=== PATIENT | male | born 1955 | race Caucasian/White ===

== ENCOUNTER 2024-12-10 20:48 | Outpatient (CLI) | payer MEDICARE, BC, SELFPAY ==
--- OUTSIDE RECORDS SUMMARY | 2024-12-11 00:47 | XMS_ITS | Clinical Summary ---
Author Organization [employer] [facility] Address [address] [place] [address] Care Team Providers Care Box Shook Patcher Name Role Phone Kadi Remy DO Primary Care Provider Allergies No known active allergies Medications ASPIRIN 81 MG TAB, DELAYED RELEASE take 1 tablet (81 mg) by oral route once daily 0 11/18/19 09 Active loratadine (CLARITIN) 10 mg tablet Take 1 tablet by mouth once daily. 0 10/29/19 11 Active [place]-3 Fatty Acids-Vitamin E 2,000-650-12 mg/2.5 gram elpk Take 1 capsule by mouth 2 times daily. 0 09/27/19 17 Active acetaminophen (TYLENOL) 325 mg tablet Take 1 tablet by mouth every 4 hours if needed. Max acetaminophen dose: 4000mg in 24 hrs. Sometimes gets headaches from citalopram. 0 04/08/20 19 Active blood-glucose meterIndications: New onset type 2 diabetes mellitus (HC) Dispense meter, test strips, lancets covered by pt ins. E11.65 NIDDM type II, uncontrolled - Test 2 times/day. Reason: High A1C 1 Device 08/03/19 Active inhalational spacing deviceIndications :Exercise-induced asthma (HC) For home use. 1 Each 2 12/31/19 21 Active albuterol HFA (PRO-AIR; VENTOLIN; PROVENTIL) 90 mcg/actuation inhalerIndication s:Exercise-induce d asthma (HC) Inhale 1-2 Puffs by mouth every 4 hours if needed. 1 Each 5 02/23/20 21 Active lancets (Accu-Chek Softclix Lancets)Indicatio ns:New onset type 2 diabetes mellitus (HC) USE TO TEST TWO TIMES A DAY 200 Each 3 08/24/19 22 Active blood sugar diagnostic (Accu-Chek La Plus test strp) stripIndications: New onset type 2 diabetes mellitus (HC) USE TO TEST ONE TIMES A DAY 100 Each 6 08/24/19 22 Active omeprazole (PRILOSEC) 40 mg Delayed-Release capsuleIndication s:Dyspepsia TAKE ONE CAPSULE BY MOUTH EVERY DAY BEFORE A MEAL 90 Capsule 1 09/02/19 24 Active metFORMIN (GLUCOPHAGE) 1,000 mg tabletIndications :New onset type 2 diabetes mellitus (HC) Take 1 Tablet (1,000 mg) by mouth two times daily with meals. 180 Tablet 3 12/08/19 24 Active oxybutynin XL (DITROPAN XL) 5 mg CR tablet Active atorvastatin (LIPITOR) 20 mg tabletIndications :New onset type 2 diabetes mellitus (HC),HTN (hypertension),Mi xed hyperlipidemia Take 1 Tablet (20 mg) by mouth at bedtime. 90 Tablet 3 04/16/20 24 Active lisinopriL 20 mg tabletIndications :Hypertension, unspecified type TAKE ONE TABLET BY MOUTH ONCE EVERY DAY 90 Tablet 1 09/15/19 25 Active metoprolol succinate 25 mg Sustained-Release tabletIndications :Frequent unifocal PVCs TAKE ONE TABLET (25 MG) BY MOUTH ONCE EVERY DAY 90 Tablet 1 09/15/19 25 Active citalopram 20 mg tabletIndications :anxiety with depression Take 1.5 Tablets (30 mg) by mouth once daily in the morning. Patient is taking 1.5 tablets 30mg total 135 Tablet 3 11/19/19 25 Active Vitamin D2 1,250 mcg (50,000 unit) capsuleIndication s:Vitamin D deficiency TAKE 1 CAPSULE BY MOUTH ONCE WEEKLY 52 Capsule 05/23/20 22 025 Discontin ued(*Med complete/ Regimen complete/ Level of care change) citalopram (CELEXA) 20 mg tabletIndications :Major depression, single episode, in complete remission TAKE ONE TABLET BY MOUTH EVERY EVENING 90 Tablet 3 03/20/20 24 025 Discontin ued(Reord er (E-cancel not sent)) Active Problems Problem Noted Date Diagnosed Date Stage 3a chronic kidney disease 10/28/2024 Primary osteoarthritis of right knee 01/12/2024 Blood donor 08/24/2021 Iron deficiency anemia due to chronic blood loss 08/24/2021 Moderate episode of recurrent major depressive d isorder 07/27/2020 New onset type 2 diabetes mellitus 04/20/2019 Dupuytren's disease of palm of right hand 2018 Colon polyp 01/11/2013 Overview (04/24/2024): Colonoscopy 01/2013 normal repeat in 5 years Colonoscopy 04/2024 normal, repeat in 5 years Elevated fasting glucose 05/16/2012 Asymptomatic varicose veins 01/26/2011 HTN (hypertension) 12/28/2009 Allergic rhinitis, cause unspecified 09/14/2006 Overview (09/14/2006): immunotherapy Resolved Problems Problem Noted Date Diagnosed Date Resolved Date CKD (chronic kidney disease) stage 3, GFR 30-59 ml/min 07/03/2021 08/24/2021 Depression, recurrent 07/27/20202020 Major depression, single epi sode, in complete remission 02/25/2011 07/27/2020 Encounters Date Type Department Care Team Description 12/10/2024 Refill [facility] [address] [place] [address] Mary Vigil PA Refill Request (Metformin) 11/18/2024 1:25 PM CDT Office Visit [facility] [address] [place] [address] Kadi Remy DO Fatigue; Medication Management (citalapram increase); Memory Loss 11/18/2024 Travel 10/28/2024 11:30 AM CDT Office Visit [facility] [address] [place] [address] Kristina Bernardo PA Fatigue (Patient has felt fatigued for a few weeks patient says some days are good somedays are just exhausting and not feeling well.) 10/28/2024 Travel 09/13/2024 Refill [facility] [address] [place] [address] Kadi Remy DO Refill Request (Lisinopril, Metoprolol Succinate) from Last 3 Months Immunizations Immunization Administration Dates Next Due AMB Influenza, IIV3 (Age >=3 years)(Flu Clinic Only) 04/11/2012,04/21/2008 AMB Influenza, IIV4 PF (=>6 mos Flulaval,Fluzone Fluarix)(Flu Clinic Only) 04/16/2015 COVID-19 VACCINE SPIKEVAX (M ODERNA 50MCG/0.5ML) 12YO+ PFS 04/15/2024,04/06/2023 COVID-19 vaccine (Moderna 100mcg/0.5mL) PF, MDV 04/06/2023 COVID-19 vaccine ([employer]-Bio NTech 30mcg/0.3mL) 12YO+ BIVALENT PF, MDV 03/10/2022 COVID-19 vaccine ([employer]-Bio NTech 30mcg/0.3mL) PF, MDV 04/20/2021,04/15/2021,09/03/2020,08/13 Influenza A (H1N1), Inactiva amelie (Age >=3 Years) 06/10/2009 Influenza Virus, Unspecified 03/02/2010,05/25/20 05 Influenza, High-dose Inactivated 02/24/2019 Influenza, High-dose Quadriv alent Inactivated 04/06/2023 Influenza, IIV3 (Age 6-35 mos) 03/16/2011 Influenza, IIV3 (Age >=3 years) 04/22/20 13,03/16/2011,03/02/2010,02/18,04/03/2007,05/17/2006,04/10/1999 ,04/06/1998,04/14/1997,03/29/1996 Influenza, IIV4 04/07/2021,03/13/2017,02/26/2016 Influenza, IIV4 (=>6mos) MDV 03/12/2018 Influenza, Inactivated AIIV4 (Age 65+ Years) Preserv Free 04/06/2023,03/21/2022,03/16/2020 Influenza, Inactivated IIV3 (Age 65+ Years) Preserv Free 04/15/2024 Pneumococcal Poly,23-Valent (Pneumovax) 04/08/2019,04/03/2007,03/29/1996 RSV, Recombinant ADJ Reconst ituted (Arexvy 120MCG/0.5mL) 04/22/2023,04/13/2023 Td (Age >=7 Years) 04/08/2019,09/26/1995 Tdap 10/31/2008 Zoster (Shingrix-RZV, recombinant) 12/25/2019, Zoster (Zostavax-ZVL, live) 04/17/2014 Family History Medical History Relation Name Comments Hypertension Mother Hypertension Sister 1 Cancer Sister 2 uterine ca Relation Name Status Comments Father (Age 82) renal cell Mother (Age 56) CVA Sister 1 Sister 2 Social History Tobacco Use Types Packs/Day Years Used Date Smoking Tobacco: Never Smokeless Tobacco: Never Tobacco Cessation:Counseling Given: Yes Alcohol Use Standard Drinks/Week Comments Yes 0 (1 standard drink = 0.6 oz pur e alcohol) 1 time per month PHQ-2 Answer Date Recorded PHQ-2 TOTAL SCORE 2 11/18/2024 Social Connections Answer Date Recorded Do you often feel lonely or isolated from those around you? 0 12/08/2023 Financial Resource Strain Answer Date R ecorded Difficulty of Paying Living Expenses 3 12/08/2023 Difficulty of Paying Living Expenses Not on file 12/08/2023 Food Insecurity Answer Date Recorded Do you worry your food will run out before you are able to buy more? 1 12/08/2023 Transportation Needs Answer Date Record ed Does lack of transportation keep you from medica l appointments? 1 12/08/2023 Does lack of transportation keep you from work, meetings or getting things that you need? 1 12/08/2023 Housing Stability Answer Date Recorded What is your housing situation today? 1 12/08/2023 Utilities Answer Date Recorded Do you have trouble paying f or utilities (for example, heat, electricity, water, phone)? 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 Not on file Not on file Obstetrics History Last Filed Vital Signs Vital Sign Reading Time Taken Comments Blood Pressure 156/74 11/18/2024 1:22 PM CDT Pulse 75 11/18/2024 1:22 PM CDT Temperature 36.9 C (98.5 F) 10/28/2024 11:29 AM CDT Respiratory Rate 20 08/03/2020 2:[address] RECORDING MONITOR Oxygen Saturation 99% 11/18/2024 1:22 PM CDT Inhaled Oxygen Concentration - - Weight 92.4 kg (203 lb 9.6 oz) 11/18/2024 1:22 P M CDT Height 185.4 cm (6' 1) 04/15/2024 2:[address] RECORDING MONITOR Body Mass Index 26.86 04/15/2024 2:[address] RECORDING MONITOR Plan of Treatment Upcoming Encounters Date Type Department Care Team (Late st Contact Info) Description 03/11/2025 9:00 AM CDT Office Visit [facility] [address] [place] [address] Luigi Pulliam MD [address] [place] [address] Health Maintenance Due Date Last Done Comments Pneumococcal series for age 50+ (2 of 2 - PCV) 04/08/2020 04/08/2019, 04/03/2007, 03/29/1996 COVID-19 vaccine series ( season) 2024 04/15/2024, 04/06/2023, 04/06/2023, Additional history exists BMI (ht and wt on same day) for age 18+ 04/15/2025 04/15/2024, 03/18/2024, 01/16/2023, Additional history exists Medicare Wellness for age 65+ 04/16/2025 04/15/2024, 01/16/2023, 08/23/2021 Depression screening for age 12+ 11/18/2025 11/18/2024, 04/15/2024, 07/13/2023, Additional history exists Tetanus booster 04/08/2029 04/08/2019, 10/11, 09/26/1995 Lipids for age 45-75 04/15/2029 04/15/2024, 12/08/2023, 08/17/2022, Additional history exists Colonoscopy through age 75 04/24/202904/24, 10/05/2018, 10/05/2018, Additional history exists Hepatitis C screening for age 18-79 05/25/2040 Postponed from 10/17/1971 (Other) ([place]) Tdap Completed 10/31/2008 Zoster (shingles) series for age 50+ Completed 12/25/2019, 10/11/2019, 04/17/2014 RSV vaccine for adults or Completed 04/22/2023, 04/13/2023 Influenza Vaccine Completed 04/15/2024, , 03/21/2022, Additional history exists Hepatitis B series for 19+ Aged Out N o longer eligible based on patient's age to complete this topic Procedures Procedure Name Priority Date/Time Associated Diagnosis Comments EKG 12 LEAD Routine 11/19/2024 10:47 AM CDT Medication monitoring encounter UT READING EKG - NO CHARGE, COMP ONLY Routine 11/19/2024 10:46 AM CDT Medication monitoring encounter HEMOGLOBIN A1C MONITORING (POCT) Routine 11/18/2024 2:23 PM CDT New onset type 2 diabetes mellitus (HC) VITAMIN D 25 (DEFICIENCY) Routine 10/28/2024 12:27 PM CDT Vitamin D deficiency TSH WITH REFLEX Routine 10/28/2024 12:27 PM CDT Fatigue, unspecified type CBC WITH AUTO DIFFERENTIAL Routine 10/28/2024 12:27 PM CDT Fatigue, unspecified type COMP METABOLIC PANEL Routine 10/28/2024 12:27 PM CDT Fatigue, unspecified type COVID/FLU/RSV PANEL Routine 10/28/2024 1 2:00 PM CDT Fatigue, unspecified type SCAN-COLONOSCOPY 04/24/2024 12:[address] RECORDING MONITOR LIPID PANEL W REFLEX MEASURED LDL Routine 04/15/2024 3:[address] RECORDING MONITOR New onset type 2 diabetes mellitus (HC) HTN (hypertension) from Last 3 Months or Most Recently Relevant to Health Maintenance Results * EKG 12 LEAD (11/19/2024 10:47 AM CDT) Kadi Remy DO EKG ORD Final Resul t * UT READING EKG - NO CHARGE, COMP ONLY (11/19/2024 10:46 AM CDT) Kadi Morelosa Detert DO PB - PROVIDER READINGS Viki l Result * (ABNORMAL) HEMOGLOBIN A1C MONITORING (POCT) (11/18/2024 2:23 PM CDT) POC HEMOGLOBIN A1C 7.1(H) <6.0 % OF TOTAL HGB [facility] Comment: Any point of care results exhibiting inconsistency with the patient's clinical status should be repeated using a different testing method. Blood BLOOD SPECIMEN / Unknown 11/18/2024 2:23 PM CDT 11/18/2024 2:23 PM CDT Kadi Remy DO CHEMISTRY Final Resul t [facility] [address] [place] [address], [facility] [address] [place] [address] * TSH WITH REFLEX (10/28/2024 12:27 PM CDT) TSH W/REFLEX TO FT4 1.27 0.40 - 4.50 mIU/L [facility] Blood BLOOD SPECIMEN / Unknown 10/28/2024 12:27 PM CDT 10/28/2024 12:30 PM CDT Narrative [facility] - 10/29/2024 6:45 AM CDT FASTING:NO FASTING: NO Kristina VALDEZ CHEMISTRY Final Result [facility] [address] [place] [address], [facility] [address] [place] [address] * VITAMIN D 25 (DEFICIENCY) (10/28/2024 12:27 PM CDT) Pathologist [facility] VITAMIN D,25-OH,TOTAL,IA 42 30 - 100 ng/mL [facility] Comment: Vitamin D Status 25-OH Vitamin D: Deficiency: <20 ng/mL Insufficiency: 20 - 29 ng/mL Optimal: > or = 30 ng/mL For 25-OH Vitamin D testing on patients on D2-supplementation and patients for whom quantitation of D2 and D3 fractions is required, the QuestAssure[facility](TM) 25-OH VIT D, (D2,D3), LC/MS/MS is recommended: order code 64066 (patients >2yrs). See Note 1 Note 1 For additional information, please refer to http://education.Skeeble/faq/YWU310 (This link is being provided for informational/ educational purposes only.) Blood BLOOD SPECIMEN / Unknown 10/28/2024 12:27 PM CDT 10/28/2024 12:30 PM CDT Narrative [facility] - 10/29/2024 6:45 AM CDT FASTING:NO FASTING: NO Kristina VALDEZ SEND OUTS Final Result Performing Organization Address [facility] Co de Phone Number [employer] [facility] [address] [place] [address], [facility] [address] [place] [address] * CBC AND DIFFERENTIAL (10/28/2024 12:27 PM CDT) Pathologist [facility] WHITE BLOOD CELL COUNT 5.7 3.8 - 10.8 Thousand/u L [facility] RED BLOOD CELL COUNT 4.79 4.20 - 5.80 Million/uL [facility] HEMOGLOBIN 14.8 13.2 - 17.1 g/dL [facility] HEMATOCRIT 44.3 38.5 - 50.0 % [facility] MCV 92.5 80.0 - 100.0 fL [facility] MCH 30.9 27.0 - 33.0 pg [facility] MCHC 33.4 32.0 - 36.0 g/dL [facility] Comment: For adults, a slight decrease in the calculated MCHC value (in the range of 30 to 32 g/dL) is most likely not clinically significant; however, it should be interpreted with caution in correlation with other red cell parameters and the patient's clinical condition. RDW 11.9 11.0 - 15.0 % [facility] PLATELET COUNT 268 140 - 400 Thousand/u L [facility] MPV 10.3 7.5 - 12.5 fL [facility] ABSOLUTE NEUTROPHILS 3,625 1,500 - 7,800 cells/uL [facility] ABSOLUTE LYMPHOCYTES 1,522 850 - 3,900 cells/uL [facility] ABSOLUTE MONOCYTES 274 200 - 950 cells/uL [facility] ABSOLUTE EOSINOPHILS 251 15 - 500 cells/uL [facility] ABSOLUTE BASOPHILS 29 0 - 200 cells/uL [facility] NEUTROPHILS 63.6 % [facility] LYMPHOCYTES 26.7 % [facility] MONOCYTES 4.8 % [facility] EOSINOPHILS 4.4 % [facility] BASOPHILS 0.5 % [facility] Blood BLOOD SPECIMEN / Unknown 10/28/2024 12:27 PM CDT 10/28/2024 12:30 PM CDT Narrative [facility] - 10/29/2024 4:16 AM CDT FASTING:NO FASTING: NO Kristina VALDEZ HEMATOLOGY Final Result [employer] [facility] [address] [place] [address], [facility] [address] [place] [address] * (ABNORMAL) COMP METABOLIC PANEL (10/28/2024 12:27 PM CDT) [facility] GLUCOSE 167(H) 65 - 139 mg/dL [facility] Comment: Non-fasting reference interval UREA NITROGEN (BUN) 27(H) 7 - 25 mg/dL [facility] CREATININE 1.49(H) 0.70 - 1.28 mg/dL [facility] EGFR 50(L) > OR = 60 mL/min/1.7 3m2 [facility] BUN/CREATININE RATIO 18 6 - 22 (calc) [facility] SODIUM 138 135 - 146 mmol/L [facility] POTASSIUM 5.0 3.5 - 5.3 mmol/L [facility] CHLORIDE 102 98 - 110 mmol/L [facility] CARBON DIOXIDE 24 20 - 32 mmol/L [facility] CALCIUM 9.9 8.6 - 10.3 mg/dL [facility] PROTEIN, TOTAL 7.3 6.1 - 8.1 g/dL [facility] ALBUMIN 4.6 3.6 - 5.1 g/dL [facility] GLOBULIN 2.7 1.9 - 3.7 g/dL (calc) [facility] ALBUMIN/GLOBULIN RATIO 1.7 1.0 - 2.5 (calc) [facility] BILIRUBIN, TOTAL 0.4 0.2 - 1.2 mg/dL [facility] ALKALINE PHOSPHATASE 65 35 - 144 U/L [facility] AST 11 10 - 35 U/L [facility] ALT 17 9 - 46 U/L [facility] Blood BLOOD SPECIMEN / Unknown 10/28/2024 12:27 PM CDT 10/28/2024 12:30 PM CDT Narrative [facility] - 10/29/2024 9:20 AM CDT FASTING:NO FASTING: NO Kristina VALDEZ CHEMISTRY Final Result [facility] [address] [place] [address], [facility] [address] [place] [address] * COVID/FLU/RSV PANEL (10/28/2024 12:00 PM CDT) [facility] COVID 19 [place] MOLECULAR Negative Negative 10/29/2024 4:21 AM CDT [facility] INFLUENZA A PCR Negative 4:21 AM CDT [facility] INFLUENZA B PCR Negative 4:21 AM CDT [facility] Respiratory Syncytial Virus Negative 10/29/2024 4:21 AM CDT [facility] Swab NASOPHARYNGEAL SWAB / Unknown Non-Blood / Unknown 10/28/2024 12:00 PM CDT 10/28/2024 12:22 PM CDT Kristina VALDEZ MICROBIOLOGY Final Result [facility] [address] [place] [address], * SCAN-COLONOSCOPY (04/24/2024 12:[address] RECORDING MONITOR) Scanner OTHER Final Result * (ABNORMAL) LIPID PANEL W REFLEX MEASURED LDL (04/15/2024 3:[address] RECORDING MONITOR) Pathologist [facility] CHOLESTEROL, TOTAL 157 <200 mg/dL [facility] HDL CHOLESTEROL 36(L) > OR = 40 mg/dL [facility] TRIGLYCERIDES 359(H) <150 mg/dL [facility] Comment: If a non-fasting specimen was collected, consider repeat triglyceride testing on a fasting specimen if clinically indicated. Maricruz et al. J. of Clin. Lipidol. 2015;9:129-169. LDL-CHOLESTEROL 78 mg/dL (calc) [facility] Comment: Reference range: <100 Desirable range <100 mg/dL for primary prevention; <70 mg/dL for patients with CHD or diabetic patients with > or = 2 CHD risk factors. LDL-C is now calculated using the Momo calculation, which is a validated novel method providing better accuracy than the Friedewald equation in the estimation of LDL-C. Johnathan SS et al. JARRELL. 2013;310(19): 0343-1484 (http://education.Skeeble/faq/GJF405) CHOL/HDLC RATIO 4.4 <5.0 (calc) [facility] NON HDL CHOLESTEROL 121 <130 mg/dL (calc) [facility] Comment: For patients with diabetes plus 1 major ASCVD risk factor, treating to a non-HDL-C goal of <100 mg/dL (LDL-C of <70 mg/dL) is considered a therapeutic option. Blood BLOOD SPECIMEN / Unknown 04/15/2024 3:[address] RECORDING MONITOR 04/15/2024 3:[address] RECORDING MONITOR Kadi Remy DO CHEMISTRY Final Resul t [employer] [facility] [address] [place] [address], [facility] [address] [place] [phone] from Last 3 Months or Most Recently Relevant to Health Maintenance Insurance [employer] [place] [employer] [place] BL[employer] MR PB ONLY TRAVELERS Care Teams Box Shook Patcher Relationship Specialty Start Date End Date Kadi Remy DO PCP - General 03/02/10
--- OUTSIDE RECORDS SUMMARY | 2024-12-11 00:47 | XMS_ITS | Data Portability ---
Author Organization [place] [facility] [place] [facility], [facility] Address [address] [place] [address] Assessment No assessment recorded. Plan of Treatment Reminders Order Date Submit Date Provider Last Modified By Organization Details Last Modified Time Details Appointments None record ed. Lab urinal ysis, dipsti ck 2023 edel ramirez [facility], [address] [place], [address], 14:11:51 Referral None record ed. Procedures None record ed. Surgeries None record ed. Imaging None record ed. Medication Orders Gemtes a 75 mg tablet 2023 edel ramirez [id number], [address] [place] [address], [address], 14:35:06 Patient TargetsNo targets recorded. Patient InstructionsNo instructions recorded. Reason for Referral None Reported. Results Created Date Observation Date Name Description Value Unit Range Abnormal Flag Note LastModifiedBy Organization Detail LastModifiedTime 01/08/20 24 01/08/2024 urina lysis , dipst ick BLOOD Negati ve Not Available [facility] [address], [place], [address], 01/08/2024 14:09:37 01/08/20 24 01/08/2024 urina lysis , dipst ick BILIRUBIN Negati ve Not Available [facility] [address], [place], [address], 01/08/2024 14:09:37 01/08/20 24 01/08/2024 urina lysis , dipst ick UROBILINOGEN 0.2 mg/dL (Norm) Not Available [facility] [address], [place], [address], 01/08/2024 14:09:37 01/08/20 24 01/08/2024 urina lysis , dipst ick KETONES Negati ve Not Available [facility] [address], [place], [address], 01/08/2024 14:09:37 01/08/20 24 01/08/2024 urina lysis , dipst ick PROTEIN Negati ve Not Available [facility] [address], [place], [address], 01/08/2024 14:09:37 01/08/20 24 01/08/2024 urina lysis , dipst ick NITRITES Negati ve Not Available [facility] [address], [place], [address], 01/08/2024 14:09:37 01/08/20 24 01/08/2024 urina lysis , dipst ick GLUCOSE Negati ve Not Available [facility] [address], [place], [address], 01/08/2024 14:09:37 01/08/20 24 01/08/2024 urina lysis , dipst ick p.H. 5.0 Not Available [facility] [address], [place], [address], 01/08/2024 14:09:37 01/08/20 24 01/08/2024 urina lysis , dipst ick S.G. (Specific Uriah) 1.025 Not Available [facility] [address], [place], [address], 01/08/2024 14:09:37 01/08/20 24 01/08/2024 urina lysis , dipst ick LEUKOCYTES Negati ve Not Available [facility] [address], [place], [address], 01/08/2024 14:09:37 Result Notes None recorded. Medical Equipment None Reported. Allergies No known drug allergies Medications Name Sig Start Date Stop Date Status Note LastModified by Organization Details LastModified Time metformin 500 mg tablet active Not Available Not Available Not Available atorvastatin 20 mg tablet active Not Available Not Available Not Available tolterodine ER 4 mg capsule,exte nded release 24 hr Take 1 capsule every day by oral route. 2023 active Not Available Not Available Not Avai lable lisinopril 20 mg tablet active Not Available Not Available Not Available prednisone 20 mg tablet 01/07 completed Not Available Not Available Not Available Accu-Chek Softclix Lancets 01/07 completed Not Available Not Available Not Available omeprazole 40 mg capsule,mackenzie yed release 01/07 completed Not Available Not Available Not Available citalopram 20 mg tablet active Not Available Not Available Not Available DOK 100 mg capsule active Not Available Not Available Not Available benzonatate 100 mg capsule 01/07 completed Not Available Not Available Not Available metformin 1,000 mg tablet 01/07 completed Not Available Not Available Not Available oxybutynin chloride ER 5 mg tablet,exten ded release 24 hr Take 1 tablet every day by oral route. 2024 active Not Available Not Available Not Avai lable aspirin 81 mg chewable tablet Chew 1 tablet every day by oral route. active Not Available Not Available No t Available metoprolol succinate ER 25 mg tablet,exten ded release 24 hr active Not Available Not Available Not Available methylpredni solone 4 mg tablets in a dose pack 01/07 completed Not Available Not Available Not Available Vitamin D2 1,250 mcg (50,000 unit) capsule active Not Available Not Available Not Available Ventolin HFA 90 mcg/actuatio n aerosol inhaler 01/07 completed Not Available Not Available Not Available Accu-Chek La Plus test strips 01/07 completed Not Available Not Available Not Available Accu-Chek La Plus Meter 01/07 completed Not Available Not Available Not Available Gemtesa 75 mg tablet Take 1 tablet every day by oral route. 2023 active Not Available Not Available Not Avai lable loratadine 10 mg chewable tablet Take by oral route. active Not Available Not Available No t Available Vitals Date Recorded Body height Body mass index (BMI) Body weight Provider Name and Address Organization Details Last Updated DateTime 01/08/2024 185.42 cm 26.4 kg/m2 88057.47 [facility] 01/08/2024 14:16:57 Social History Question Answer Notes LastModified by Organizat ion Details LastModified Time Tobacco Smoking Status Never Smoker Jonathan weinstein [facility] 01/08/2024 14:19:34 What Is Your Level Of Caffeine Consumption? Moderate Information not available 01/08/2024 What Was The Date Of Your Most Recent Tobacco Screening? 01/08/2024 Information not available 01/08/2024 Sex: Unknown Functional Status Question Answer Note LastModified by Organizat ion Details LastModified Time Do you use any illicit or recreational drugs? No Information not available 01/08/2024 What is your level of alcohol consumption? Occasional Information not available 01/08/2024 Mental Status None recorded. Family History Relationship Description Onset Age of this Age Resolved Age Notes LastModified by Organization Details LastModified Time Father Malignant tumor of kidney [place] [facility] Not available 01/08/2024 14:19:00 Sister Malignant neoplasm of uterus [facility] [facility] Not available 01/08/2024 14:19:21 Medical History Condition Response Bleeding Disorder N Kidney Stones Y Immunizations Vaccine Type Date Status Note Provider Nam e and Address Organization Details Recorded Time Influenza, split virus, quadrivalent, preservative 8 completed Jonathan weinstein [facility] 01/08/2024 14:07:19 zoster recombinant 0 completed Miletzi [facility] ro null, [facility] 01/08/2024 14:07:20 [facility], [facility] 01/08/2024 14:07:20 Influenza, high-dose, quadrivalent, PF 3 [facility] [facility], [facility] 01/08/2024 14:07:20 Influenza, adjuvanted, quadrivalent, PF 0 [facility] [facility] null, [facility] 01/08/2024 14:07:20 Influenza, adjuvanted, quadrivalent, PF [facility] [facility], [facility] 01/08/2024 14:07:20 COVID-19, mRNA, LNP-S, PF, 30 mcg/0.3 mL dose 1 completed [facility] ro null, [facility] 01/08/2024 14:07:20 COVID-19, mRNA, LNP-S, PF, 30 mcg/0.3 mL dose 1 [facility] [facility], [facility] 01/08/2024 14:07:20 COVID-19, mRNA, LNP-S, PF, 30 mcg/0.3 mL dose 1 completed [facility] ro null, [facility] 01/08/2024 14:07:20 COVID-19, mRNA, LNP-S, PF, 30 mcg/0.3 mL dose 1 [facility] [facility] null, [facility] 01/08/2024 14:07:20 COVID-19, mRNA, LNP-S, bivalent, PF, 30 mcg/0.3 mL dose 2 [facility] [facility] null, [facility] 01/08/2024 14:07:20 RSV, recombinant, protein subunit RSVpreF, adjuvant reconstituted, 0.5 mL, PF 3 completed Miletzi [facility] [facility] null, [facility] 01/08/2024 14:07:20 RSV, recombinant, protein subunit RSVpreF, adjuvant reconstituted, 0.5 mL, PF 3 completed Mile[facility], [facility] 01/08/[facility]24 14:07:20 COVID-19, mRNA, LNP-S, PF, 50 mcg/0.5 mL 3 completed Miletzi [facility] ro null, [facility] 01/08/2024 14:07:20 pneumococcal polysaccharide PPV23 7 completed Miletzi [facility] [facility] null, [facility] 01/08/2024 14:07:20 pneumococcal polysaccharide PPV23 9 completed [facility] [facility] null, [facility] 01/08/2024 14:07:20 Tdap 9 completed [facility] ro null, [facility] 01/08/2024 14:07:20 Novel Elfarlaxb-[id number], all formulations 9 completed [facility] null, [facility] 01/08/2024 14:07:20 zoster live 4 completed [facility] null, [facility] 01/08/2024 14:07:20 Influenza, high-dose, trivalent, PF 9 completed [facility] null, [facility] 01/08/2024 14:07:20 Influenza, split virus, trivalent, preservative 9 completed Miletzi [facility] null, [facility] 01/08/2024 14:07:20 Influenza, split virus, trivalent, preservative 7 completed Miletzi [facility] null, [facility] 01/08/2024 14:07:20 Influenza, split virus, trivalent, preservative 2 completed Miletzi [facility] ro null, [facility] 01/08/2024 14:07:20 Influenza, split virus, trivalent, preservative 8 completed Miletzi [facility] [facility] null, [facility] 01/08/2024 14:07:20 Influenza, split virus, trivalent, preservative 3 completed Miletzi [facility] ro null, [facility] 01/08/2024 14:07:20 Influenza, split virus, trivalent, preservative 6 completed Milet[facility] [facility] null, [facility] 01/08/2024 14:07:20 Influenza, split virus, trivalent, preservative 5 completed Milet[facility] [facility] null, [facility] 01/08/2024 14:07:20 Influenza, split virus, trivalent, PF 0 completed Miletzi [facility] ro null, [facility] 01/08/2024 14:07:20 Influenza, split virus, trivalent, PF 1 completed Miletzi [facility] ro null, [facility] 01/08/2024 14:07:20 Td (adult), 2 Lf tetanus toxoid, preservative free, adsorbed 9 completed Miletzi [facility] [facility] null, [facility] 01/08/2024 14:07:20 Influenza, split virus, quadrivalent, PF 6 completed Miletzi [facility] ro null, [facility] 01/08/2024 14:07:20 Influenza, split virus, quadrivalent, PF 7 completed Miletzi [facility] [facility] null, [facility] 01/08/2024 14:07:20 Influenza, split virus, quadrivalent, PF 1 completed Miletzi [facility] [facility] null, [facility] 01/08/2024 14:07:20 Influenza, split virus, quadrivalent, PF 5 completed Jonathan weinstein [place] [facility] 01/08/2024 14:07:20 Past Encounters Encounter ID Performer Location Encounter Start Date Encounter Closed Date Diagnosis/Indication Diagnosis SNOMED-CT Code Diagnosis ICD10 Code Diagnosis Note [id number] Suleman Voss MD [facility] [address] [place] [address] 01/08/2024 13:59:35 01/09/2024 12:18:36 Urgent desire to urinate [id number] R39.15 1. Urinary urgency- bladder empties well (PVR = 7 mL)- likely due to an overactive bladder- try Gemtesa 75 mg daily(if no improvemen t - consider Tolterodin e ER 4 mg daily)- Follow-up in 3 months with Bladder scan Health Concerns Section Related Observation LastModified by Organization Detai ls LastModified Time None Recorded Concern Status LastModified by Organization Details LastModified Time None Recorded Advance Directives Directive None Recorded Payers Insurance Date Sequence Insurance Name Policy Number Policy Tomas Covered Member ID Tomas Member ID Guarantor Name 01/08/2024 1 [place] [employer] Mickey Pederson [place] [id number] Mickey Pederson [place] 01/15/2024 2 [place] [id number] Mickey Pederson [place] [id number] Mickey Pederson [place] 01/08/2024 1 MEDICA (PPO) [id number] Mickey Pederson [place] [id number] Mickey Pederson [place] Notes Date Note Type Note Provider Name and Address Organization Details Recorded Time 01/08/2024 text/html 68 yo male with history of HTN, DM (type 2), Dupuytren's disease (Right palm), and depression - presents for evaluation of urgency / urinary incontinence. No Family Hx of prostate cancer. He reports trouble with nocturia and urgency for several years. He voids every 1-3 hours during the day and 2x/night. He has urgency (with occasional leakage) - denies hesitancy, weak stream, and dysuria.- UA - no blood - no LE- PVR = 7 mL PSA - 0.83 (12/23/16)- 082 (05/10/13)- 0.97 (03/02/18)- 1.19 (05/25/20) Suleman Voss MD [address] [place] [address], [place], [address], [facility] 01/08/2024 23:34:25
== END 2024-12-10 20:49 | disposition home or self-care (01) ==
LOC: SLEEP 20:48
PROVIDERS: PCP Family Medicine; Visit Provider Family Medicine
DX: G47.33 Obstructive sleep apnea (adult) (pediatric) (principal)
CPT/HCPCS: 95810

== ENCOUNTER 2025-01-17 22:15 | Emergency (ER) | payer MEDICARE, BC, SELFPAY ==
[2025-01-17] VITALS (18 sets, daily range): BP systolic 136–169; BP diastolic 48–97; PULSE 30–37; RESP 0–39; TEMP 36.1; O2SAT 94–97; BMI 26.4
--- OUTSIDE RECORDS SUMMARY | 2025-01-17 22:17 | XMS_ITS | Clinical Summary ---
Author Organization [facility] Address [address] [place] [address] Care Team Providers Care Bill Poster Installer Name Role Phone Kadi Remy DO Primary Care Provider Allergies No known active allergies Medications ASPIRIN 81 MG TAB, DELAYED RELEASE take 1 tablet (81 mg) by oral route once daily 0 11/18/19 09 Active loratadine (CLARITIN) 10 mg tablet Take 1 tablet by mouth once daily. 0 10/29/19 11 Active Worthing-3 Fatty Acids-Vitamin E 2,000-650-12 mg/2.5 gram elpk [...] needed. 1 Each 5 02/23/20 21 Active Additional Information Patient not taking.Reported on 01/16/2025 lancets (Accu-Chek Softclix Lancets)Indicatio ns:New onset type [...] MEAL 90 Capsule 1 09/02/19 24 Active Additional Information Patient not taking.Reported on 01/16/2025 oxybutynin XL (DITROPAN XL) 5 mg CR [...] total 135 Tablet 3 11/19/19 25 Active metFORMIN 1,000 mg tabletIndications :New onset type 2 diabetes mellitus (HC) TAKE ONE TABLET (1,000 MG) BY MOUTH TWICE DAILY WITH MEALS 180 Tablet 12/12/19 25 Active metoprolol succinate (TOPROL XL) 25 mg Sustained-Release tabletIndications :Frequent unifocal PVCs Take 1 Tablet (25 mg) by mouth once daily. 90 Tablet 12/23/19 25 Active metoprolol succinate 25 mg Sustained-Release tabletIndications :Frequent unifocal PVCs TAKE ONE TABLET (25 MG) BY MOUTH ONCE EVERY DAY 90 Tablet 1 09/15/19 25 025 Discontin ued(*Avai lability/ Formulary change/Co st of medicatio n) Active Problems Problem Noted Date Diagnosed Date [...] Encounters Date Type Department Care Team Description 01/16/2025 1:30 PM CDT Ancillary Procedure [address] [address] Arrived 01/16/2025 10:40 AM CDT Office Visit [address] [address] Kristina Bernardo PA Dizziness 01/16/2025 Orders Only [address] [address] Kristina Bernardo PA 1 scan: (1-Ord) NFLD-EKG-01/16/25 01/16/2025 Travel 12/19/[address] [address] Kadi Remy DO Refill Request (Metoprolol Succinate) 12/10/2024 9:35 PM CDT Procedure Only [address] [address] Luigi Pulliam MD 12/10/2024 [facility] [address] [facility] [place] [address] Kadi Remy DO Refill Request (Metformin) 11/18/2024 1:25 PM CDT [facility] [address] [place] [address] Kadi Reym DO Fatigue; Medication Management (citalapram increase); Memory Loss 11/18/2024 Travel 10/28/2024 11:30 AM CDT [facility] [address] [facility] [place] [address] Kristina Bernardo PA Fatigue (Patient has felt fatigued for a few weeks patient says some days are good somedays are just exhausting and not feeling well.) 10/28/2024 Travel from Last 3 Months Immunizations Immunization Administration Dates Next Due AMB Influenza, IIV3 (Age >=3 years)(Flu Clinic Only) 04/11/2012,04/21/2008 AMB Influenza, IIV4 PF (=>6 mos Flulaval,Fluzone Fluarix)(Flu Clinic Only) 04/16/2015 COVID-19 VACCINE SPIKEVAX (M ODERNA 50MCG/0.5ML) 12YO+ PFS 04/15/2024,04/06/2023 COVID-19 vaccine (Moderna 100mcg/0.5mL) PF, MDV 04/06/2023 COVID-19 vaccine (Pfizer-Bio NTech 30mcg/0.3mL) 12YO+ BIVALENT PF, MDV 03/10/2022 COVID-19 vaccine (Pfizer-Bio NTech 30mcg/0.3mL) PF, MDV 04/20/2021,04/15/2021,09/03/2020,08/13 Influenza A (H1N1), Annia kinsey (Age >=3 Years) 06/10/2009 Influenza Virus, Unspecified [...] or isolated from those around you? 0 01/16/2025 Financial Resource Strain Answer Date R ecorded Difficulty of Paying Living Expenses 3 01/16/2025 Difficulty of Paying Living Expenses Not on file 01/16/2025 Food Insecurity Answer Date Recorded Do you worry your food will run out before you are able to buy more? 1 01/16/2025 Transportation Needs Answer Date Record ed Does lack of transportation keep you from medica l appointments? 1 01/16/2025 Does lack of transportation keep you from work, meetings or getting things that you need? 1 01/16/2025 Housing Stability Answer Date Recorded What is your housing situation today? 1 01/16/2025 Utilities Answer Date Recorded Do you have trouble paying f or utilities (for example, heat, electricity, water, phone)? 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 Not on file Not on file Obstetrics History Last Filed Vital Signs Vital Sign Reading Time Taken Comments Blood Pressure 127/72 01/16/2025 12:37 PM CDT Pulse 78 01/16/2025 12:37 PM CDT Temperature 36.9 C (98.5 F) 10/28/2024 11:29 AM CDT Respiratory Rate 20 08/03/2020 2:57 PM GLOBAL CLIMATE CHANGE RESEARCHER Oxygen Saturation 98% 01/16/2025 12:37 PM CDT Inhaled Oxygen Concentration - - Weight 90.4 kg (199 lb 3.2 oz) 01/16/2025 10:51 AM CDT Height 185.4 cm (6' 1) 04/15/2024 2:24 PM GLOBAL CLIMATE CHANGE RESEARCHER Body Mass Index 26.28 04/15/2024 2:24 PM GLOBAL CLIMATE CHANGE RESEARCHER Plan of Treatment Upcoming Encounters Date Type Department Care Team (Late st Contact Info) Description 01/22/2025 11:30 AM CDT [facility] [address] [place] [address] Kadi Remy DO [address] [place] [address] 03/11/2025 9:00 AM CDT [facility] [address] [place] [address] Luigi Pulliam MD [address] [place] [address] Health Maintenance Due Date Last Done Comments Pneumococcal series for age 50+ (2 of 2 - PCV) 04/08/2020 04/08/2019, 04/03/2007, 03/29/1996 COVID-19 vaccine series ( season) 2024 04/15/2024, 04/06/2023, 04/06/2023, Additional history exists Influenza Vaccine (#1) 2025 , 04/06/2023, 03/21/2022, Additional history exists BMI (ht and wt [...] age 18-79 05/25/2040 Postponed from 10/17/1971 (Other) Zoster (shingles) series for age 50+ Completed 12/25/2019, 10/11/2019, 04/17/2014 RSV vaccine for adults or Completed 04/22/2023, 04/13/2023 Hepatitis B series for 19+ Aged Out N o longer eligible based on patient's age to complete this topic Procedures Procedure Name Priority Date/Time Associated Diagnosis Comments EKG 12 LEAD Routine 01/16/2025 2:39 PM CDT COLON (dyspnea on exertion) Lightheadedness IA READING EKG - NO CHARGE, COMP ONLY Routine 01/16/2025 2:37 PM CDT COLON (dyspnea on exertion) Lightheadedness CT CHEST PE STUDY STAT 01/16/2025 12: 18 PM CDT COLON (dyspnea on exertion) Lightheadedness CREATININE,ISTAT Routine 01/16/2025 11:3 9 AM CDT Observation or evaluation for suspected condition CBC WITH AUTO DIFFERENTIAL Routine 01/16/2025 11:38 AM CDT COLON (dyspnea on exertion) Lightheadedness COMP METABOLIC PANEL Routine 01/16/2025 11:38 AM CDT COLON (dyspnea on exertion) Lightheadedness PRO-BNP Routine 01/16/2025 11:38 AM CDT COLON (dyspnea on exertion) Lightheadedness EKG 12 LEAD Routine 11/19/2024 10:47 AM CDT Medication monitoring encounter IA READING EKG - NO CHARGE, COMP ONLY [...] unspecified type SCAN-COLONOSCOPY 04/24/2024 12:0 0 AM GLOBAL CLIMATE CHANGE RESEARCHER LIPID PANEL W REFLEX MEASURED LDL Routine 04/15/2024 3:34 PM GLOBAL CLIMATE CHANGE RESEARCHER New onset type 2 diabetes mellitus (HC) HTN (hypertension) from Last 3 Months or Most Recently Relevant to Health Maintenance Results * EKG 12 LEAD (01/16/2025 2:39 PM CDT) Only the most recent of2 resultswithin the time period is included. us Kristina VALDEZ EKG ORD Final Result * IA READING EKG - NO CHARGE, COMP ONLY (01/16/2025 2:37 PM CDT) Only the most recent of2 resultswithin the time period is included. us Kristina VALDEZ PB - PROVIDER READINGS Final Result * CT CHEST PE STUDY (01/16/2025 12:18 PM CDT) Anatomical Region Laterality Modality CHEST, THORAX, HEART Computed To mography 01/16/2025 12:3 3 PM CDT Impressions 01/16/2025 12:33 PM CDT Unremarkable chest CTA. No evidence of pulmonary embolus. Please note that all CT scans at this facility use dose modulation, iterative reconstruction, and/or weight-based dosing when appropriate to reduce radiation dose to as low as reasonably achievable. Dictated by Antony Baez MD @ 01/16/2025 12:33:46 PM (Electronically Signed) Narrative 01/16/2025 12:33 PM CDT For Patients: As a result of the Century Cures Act, medical imaging exams and procedure reports are released immediately into your electronic medical record. You may view this report before your referring provider. If you have questions, please contact your health care provider. INDICATION: Lightheadedness and dyspnea on exertion TECHNIQUE: CT chest PE was acquired with 100 cc Omnipaque 350 IV contrast. Axial, coronal and sagittal maximum intensity projection reformatted images were performed on the scanner. COMPARISON: None. FINDINGS: Heart and vasculature: Contrast opacification of the pulmonary arterial tree is adequate. No sign of pulmonary embolism. Heart size is normal. Thoracic aorta and pulmonary artery are normal in caliber. Mild atherosclerotic calcification. Lungs and pleura: No pleural effusion or pneumothorax. No consolidation or suspicious pulmonary nodule. Mild biapical pleural-parenchymal scarring. Lymph nodes/mediastinum: No mediastinal or hilar lymphadenopathy. Chest wall: No masses. Upper abdomen: Normal. Bones: Unremarkable for age. Procedure Note Antony Baez MD - 01/16/2025 For Patients: As a result of the Cures Act, medical imagingexams and procedure reports are released immediately into your electronicmedical record. You may view this report before your referring provider.If you have questions, please contact your health care provider. INDICATION: Lightheadedness and dyspnea on exertion TECHNIQUE: CT chest PE was acquired with 100 cc Omnipaque 350 IV contrast. Axial,coronal and sagittal maximum intensity projection reformatted images wereperformed on the scanner. COMPARISON: None. FINDINGS: Heart and vasculature: Contrast opacification of the pulmonary arterialtree is adequate. No sign of pulmonary embolism. Heart size is normal.Thoracic aorta and pulmonary artery are normal in caliber. Mildatherosclerotic calcification. Lungs and pleura: No pleural effusion or pneumothorax. No consolidation orsuspicious pulmonary nodule. Mild biapical pleural-parenchymal scarring. Lymph nodes/mediastinum: No mediastinal or hilar lymphadenopathy. Chest wall: No masses. Upper abdomen: Normal. Bones: Unremarkable for age. IMPRESSION: Unremarkable chest CTA. No evidence of pulmonary embolus. Please note that all CT scans at this facility use dose modulation,iterative reconstruction, and/or weight-based dosing when appropriate toreduce radiation dose to as low as reasonably achievable. Dictated by Antony Baez MD @ 01/16/2025 12:33:46 PM (Electronically Signed) Kristina VALDEZ CT Final Result * (ABNORMAL) POCT Creatinine (01/16/2025 11:39 AM CDT) POCT,CREATININ E, ISTAT 1.5(H) 0.6 - 1.3 mg/dL [facility] Blood BLOOD SPECIMEN / Unknown 01/16/2025 11:39 AM CDT 01/16/2025 11:39 AM CDT Kristina VALDEZ CHEMISTRY Final Result [facility] [address] [place] [address], [facility] [address] [place] [address] * CBC AND DIFFERENTIAL (01/16/2025 11:38 AM CDT) Only the most recent of2 resultswithin the time period is included. Pathologist [facility] WHITE BLOOD CELL COUNT 7.4 3.8 - 10.8 Thousand/u L [facility] RED BLOOD CELL COUNT 4.78 4.20 - 5.80 Million/uL [facility] HEMOGLOBIN 15.1 13.2 - 17.1 g/dL [facility] HEMATOCRIT 46.9 38.5 - 50.0 % [facility] MCV 98.1 80.0 - 100.0 fL [facility] MCH 31.6 27.0 - 33.0 pg [facility] MCHC 32.2 32.0 - 36.0 g/dL [facility] Comment: For adults, a slight decrease in the calculated MCHC value (in the range of 30 to 32 g/dL) is most likely not clinically significant; however, it should be interpreted with caution in correlation with other red cell parameters and the patient's clinical condition. RDW 12.3 11.0 - 15.0 % [facility] PLATELET COUNT 288 140 - 400 Thousand/u L [facility] MPV 10.3 7.5 - 12.5 fL [facility] ABSOLUTE NEUTROPHILS 4,603 1,500 - 7,800 cells/uL [facility] ABSOLUTE LYMPHOCYTES 2,020 850 - 3,900 cells/uL [facility] ABSOLUTE MONOCYTES 466 200 - 950 cells/uL [facility] ABSOLUTE EOSINOPHILS 274 15 - 500 cells/uL [facility] ABSOLUTE BASOPHILS 37 0 - 200 cells/uL [facility] NEUTROPHILS 62.2 % [facility] LYMPHOCYTES 27.3 % [facility] MONOCYTES 6.3 % [facility] EOSINOPHILS 3.7 % [facility] BASOPHILS 0.5 % [facility] Blood BLOOD SPECIMEN / Unknown 01/16/2025 11:38 AM CDT 01/16/2025 11:38 AM CDT us Kristina VALDEZ HEMATOLOGY Final Result Performing Organization Address City/[facility]/ZIP Co de Phone Number [employer] [facility] [address] [place] [phone], [place] [phone] [facility] [address] [place] [address] * (ABNORMAL) PRO-BNP (01/16/2025 11:38 AM CDT) NT PROBNP 146(H) <125 pg/mL [facility] Blood BLOOD SPECIMEN / Unknown 01/16/2025 11:38 AM CDT 01/16/2025 11:38 AM CDT us Kristina VALDEZ SEND OUTS Final Result Performing Organization Address [facility] Co de Phone Number [employer] [address] [address], [place] [phone] [facility] [address] [place] [address] * (ABNORMAL) COMP METABOLIC PANEL (01/16/2025 11:38 AM CDT) Only the most recent of2 resultswithin the time period is included. GLUCOSE 72 65 - 99 mg/dL [facility] Comment: Fasting reference interval UREA NITROGEN (BUN) 28(H) 7 - 25 mg/dL [facility] CREATININE 1.35(H) 0.70 - 1.28 mg/dL [facility] EGFR 56(L) > OR = 60 mL/min/1.7 3m2 [facility] BUN/CREATININE RATIO 21 6 - 22 (calc) [facility] SODIUM 138 135 - 146 mmol/L [facility] POTASSIUM 5.1 3.5 - 5.3 mmol/L [facility] CHLORIDE 101 98 - 110 mmol/L [facility] CARBON DIOXIDE 29 20 - 32 mmol/L [facility] CALCIUM 10.2 8.6 - 10.3 mg/dL [facility] PROTEIN, TOTAL 7.8 6.1 - 8.1 g/dL [facility] ALBUMIN 5.0 3.6 - 5.1 g/dL [facility] GLOBULIN 2.8 1.9 - 3.7 g/dL (calc) [facility] ALBUMIN/GLOBULIN RATIO 1.8 1.0 - 2.5 (calc) [facility] BILIRUBIN, TOTAL 0.3 0.2 - 1.2 mg/dL [facility] ALKALINE PHOSPHATASE 63 35 - 144 U/L [facility] AST 13 10 - 35 U/L [facility] ALT 17 9 - 46 U/L [facility] Blood BLOOD SPECIMEN / Unknown 01/16/2025 11:38 AM CDT 01/16/2025 11:38 AM CDT Kristina VALDEZ CHEMISTRY Final Result [facility] [address] [place] [address], [facility] [address] [place] [address] * (ABNORMAL) HEMOGLOBIN A1C MONITORING (POCT) (11/18/2024 2:23 PM CDT) POC HEMOGLOBIN A1C 7.1(H) <6.0 % OF TOTAL HGB [facility] Comment: Any point of care results exhibiting inconsistency with the patient's clinical status should be repeated using a different testing method. Blood BLOOD SPECIMEN / Unknown 11/18/2024 2:23 PM CDT 11/18/2024 2:23 PM CDT Kadi Remy DO CHEMISTRY Final Resul t [facility] [address] [place] [address], [place] [phone] [facility] [address] [place] [address] * TSH WITH REFLEX (10/28/2024 12:27 PM CDT) TSH W/REFLEX TO FT4 1.27 0.40 - 4.50 mIU/L [facility] Blood BLOOD SPECIMEN / Unknown 10/28/2024 12:27 PM CDT 10/28/2024 12:30 PM CDT Narrative [facility] - 10/29/2024 6:45 AM CDT FASTING:NO FASTING: NO Kristina VALDEZ CHEMISTRY Final Result [facility] [address] [place] [address], [place] [phone] [facility] [address] [place] [address] * VITAMIN D 25 (DEFICIENCY) (10/28/2024 12:27 PM CDT) VITAMIN D,25-OH,TOTAL,IA 42 30 - 100 ng/mL [...] D, (D2,D3), LC/MS/MS is recommended: order code 10831 (patients >2yrs). See Note 1 Note 1 For additional information, please refer to http://education.Cardiac Guard/faq/FGE085 (This link is being provided for informational/ educational purposes only.) Blood BLOOD SPECIMEN / Unknown 10/28/2024 12:27 PM CDT 10/28/2024 12:30 PM CDT Narrative [facility] - 10/29/2024 6:45 AM CDT FASTING:NO FASTING: NO Kristina VALDEZ SEND OUTS Final Result Performing Organization Address City/[facility]/ZIP Co de Phone Number [employer] [facility] [address] [place] [address], [facility] [address] [place] [address] * COVID/FLU/RSV PANEL (10/28/2024 12:00 PM CDT) Pathologist [facility] COVID 19 ALLINA MOLECULAR Negative Negative 10/29/2024 4:21 AM CDT [facility] INFLUENZA A PCR Negative 5 4:21 AM CDT [facility] INFLUENZA B PCR Negative 5 4:21 AM CDT [facility] Respiratory Syncytial Virus Negative 10/29/2024 4:21 AM CDT [facility] Swab NASOPHARYNGEAL SWAB / Unknown Non-Blood / Unknown 10/28/2024 12:00 PM CDT 10/28/2024 12:22 PM CDT Kristina VALDEZ MICROBIOLOGY Final Result [facility] [address] [place] [address], * SCAN-COLONOSCOPY (04/24/2024 12:00 AM GLOBAL CLIMATE CHANGE RESEARCHER) us Scanner OTHER Final Result * (ABNORMAL) LIPID PANEL W REFLEX MEASURED LDL (04/15/2024 3:34 PM GLOBAL CLIMATE CHANGE RESEARCHER) CHOLESTEROL, TOTAL 157 <200 mg/dL [facility] HDL CHOLESTEROL 36(L) > OR = 40 mg/dL [facility] TRIGLYCERIDES 359(H) <150 mg/dL [facility] Comment: If a non-fasting specimen was collected, consider repeat triglyceride testing on a fasting specimen if clinically indicated. Maricruz et al. J. of Clin. Lipidol. 2015;9:129-169. LDL-CHOLESTEROL 78 mg/dL (calc) [facility] Comment: Reference range: <100 Desirable range <100 mg/dL for primary prevention; <70 mg/dL for patients with CHD or diabetic patients with > or = 2 CHD risk factors. LDL-C is now calculated using the Johnathan-Paco calculation, which is a validated novel method providing better accuracy than the Friedewald equation in the estimation of LDL-C. Johnathan SS et al. JARRELL. 2013;310(19): 2159-0614 (http://education.Cardiac Guard/faq/WTV662) CHOL/HDLC RATIO 4.4 <5.0 (calc) [facility] NON HDL CHOLESTEROL 121 <130 mg/dL (calc) [facility] Comment: For patients with diabetes plus 1 major ASCVD risk factor, treating to a non-HDL-C goal of <100 mg/dL (LDL-C of <70 mg/dL) is considered a therapeutic option. Blood BLOOD SPECIMEN / Unknown 04/15/2024 3:34 PM GLOBAL CLIMATE CHANGE RESEARCHER 04/15/2024 3:34 PM GLOBAL CLIMATE CHANGE RESEARCHER us Kadi Remy DO CHEMISTRY Final Resul t [employer] [facility] [address] [place] [address], [facility] [address] [place] [address] from Last 3 Months or Most Recently Relevant to Health Maintenance Insurance [employer] BLUE MR PB ONLY [employer] Care Teams Bill Poster Installer Relationship Specialty Start Date End Date Kadi Remy DO [facility] - General 03/02/10
--- NOTE | 2025-01-17 22:18 | ED.GENADULT ---
HPI - General Adult General Time Seen by Provider: 22:29 Date Seen: 01/17/25 Chief complaint: Dizziness/Vertigo Stated complaint: Dizzy - Fainting Time Seen by Provider: 01/17/25 22:18 Source: patient, family, RN notes reviewed and old records reviewed Mode of arrival: ambulatory Limitations: no limitations History of Present Illness HPI narrative: 69-year-old male who presents today with intermittent shortness of breath as well as lightheadedness and syncope. He has noted the shortness of breath last couple months but much worse in the last couple of days. Had a resting syncopal episode tonight. No chest pain, notes lightheadedness when he changes positions and with walking. No nausea vomiting. Saw his primary care doctor yesterday and stopped taking metoprolol today. Related Data Home Medications ?Medication ?Instructions ?Recorded ?Confirmed atorvastatin 20 mg tablet mg PO 12/26/23 09/27/24 citalopram 20 mg tablet 20 mg PO DAILY 12/26/23 09/27/24 lisinopril 20 mg tablet 20 mg PO DAILY 12/26/23 09/27/24 metformin 1,000 mg tablet 1,000 mg PO BID 12/26/23 09/27/24 metformin 500 mg tablet 500 mg PO BID 12/26/23 09/27/24 metoprolol succinate 25 mg 25 mg PO DAILY 12/26/23 09/27/24 tablet,extended release 24 hr omeprazole 40 mg capsule,delayed 40 mg PO DAILY 12/26/23 09/27/24 release oxybutynin chloride 5 mg 5 mg PO DAILY 12/26/23 09/27/24 tablet,extended release 24 hr Allergies Allergy/AdvReac Type Severity Reaction Status Date / Time No Known Drug Allergies Allergy Verified 01/17/25 23:30 [facility] Surgical History (Updated 01/17/25 @ 23:25 by Nohemi Macias RN) History of appendectomy ?Z90.49 - Acquired absence of other specified parts of digestive tract (ICD-10) Exam Narrative: Exam Narrative: General: Well-developed and well-nourished, no acute distress Head: Atraumatic and normocephalic Eyes: Pupils are equal reactive, extraocular motions intact, conjunctiva clear ENT: External nose and ears are normal, posterior pharynx without erythema or exudate Neck: No midline cervical tenderness, full spontaneous range of motion the neck, trachea midline, no adenopathy Heart: Bradycardic but regular Lungs: Clear to auscultation bilaterally without wheezes or crackles Abdomen: Soft, nontender, nondistended with active bowel sounds Musculoskeletal: No tenderness, deformity, or edema Neurologic: Awake, alert, and oriented x3, no gross focal neurologic deficits, cranial nerves intact as tested Psych: Mood and affect are appropriate Skin: No rashes Const: Vital Signs, click to edit/add: Vital Signs - 24 hr 01/17/25 22:16 Temperature 97.0 F L Pulse Rate [Left P ulse Oximeter] 32 L Respiratory Rate 18 Blood Pressure [Ri ght Upper Arm] 169/57 H Pulse Oximetry 97 Oxygen Delivery Me thod Room Air Course Course ED Course: Reviewed clinic visit from yesterday 1 patient seen with lightheadedness, at that time CT PE study was negative, creatinine 1.35 which is stable for the patient, normal CBC, BNP 146, patent panel normal. EKG from that visit independently interpreted by me with nonspecific intraventricular block, right axis deviation, rate 76. Patient seen examined, presents today with dyspnea on exertion, lightheadedness, syncopal episode tonight. Says he was sitting and felt like he passed out. On exam here, patient is awake alert, heart rate in the 30s and telemetry appears to show a complete heart block. Blood pressure stable, patient mentating appropriately. Labs are ordered, anticipate transfer for further cardiac evaluation and consideration for pacemaker placement. EKG independently interpreted by me performed at 10:32 p.m. demonstrates sinus bradycardia with AV dissociation and idioventricular rhythm, left axis deviation, rate 34, [id number]. Compared to prior of yesterday, AV dissociation and idioventricular rhythm has replaced sinus rhythm. Reevaluation(s) Time of Reevaluation #1: 23:21 Reevaluation #1: Labs independently interpreted by me with potassium 5.6, creatinine 1.5 which is proximally stable for the patient, magnesium 1.6, troponin 0.02. Care discussed with Dr. Peter, [facility] who agrees with plan for transfer for pacemaker. We did discussed possible treatment of hyperkalemia but Dr. Peter agreens that this unlikely to be cause of dysrhythmia. Time of Reevaluation #2: 23:27 Reevaluation #2: Care discussed with Dr. Lo, [facility] hospitalist who accepts patient for transfer. Time of Reevaluation #3: 23:59 Reevaluation #3: Sign out to oncoming provider pending transfer. Vital Signs Vital signs: Initial Vital Signs Temperature 97.0 F L 01/17/25 22:16 Temperature Source Temporal Artery Scan 01/17/25 22:16 Pulse Rate 32 L 01/17/25 22:16 Pulse Rhythm Regular 01/17/25 22:16 Respiratory Rate 18 01/17/25 22:16 Blood Pressure 169/57 H 01/17/25 22:16 Blood Pressure Mean 94 01/17/25 22:16 Blood Pressure Position Sitting 01/17/25 22:16 Pulse Oximetry 97 01/17/25 22:16 Oxygen Delivery Method Room Air 01/17/25 22:16 Vital Signs Temperature 97.0 F L 01/17/25 22:16 Pulse Rate 32 L 01/17/25 22:16 Respiratory Rate 18 01/17/25 22:16 Blood Pressure 169/57 H 01/17/25 22:16 Pulse Oximetry 97 01/17/25 22:16 Oxygen Delivery Method Room Air 01/17/25 22:16 Temperature 97.0 F L 01/17/25 22:16 Pulse Rate 32 L 01/17/25 22:16 Respiratory Rate 18 01/17/25 22:16 Blood Pressure 169/57 H 01/17/25 22:16 Pulse Oximetry 97 01/17/25 22:16 Oxygen Delivery Method Room Air 01/17/25 22:16 Medical Decision Making Lab Data Labs: Lab Results 01/17/25 01/17/25 Range/Units 22:20 22:30 Sodium 133 L (135-149) mmol/L Potassium 5.6 H (3.6-5.1) mmol/L Chloride 101 (96-114) mmol/L Carbon Dioxide 22 (20-32) mmol/L Anion Gap 10 (7-15) mEq/L BUN 37 H (7-30) mg/dL Creatinine 1.5 (0.5-1.5) mg/dL Estimated Creat Clear 51.05 Estimated GFR 49 ml/min Glucose 166 H (60-115) mg/dL Calcium 10.0 (8.4-10.6) mg/dL Magnesium 1.6 (1.5-2.6) mg/dL Troponin I 0.02 (0.01-0.04) ng/mL POC Troponin I 0.00 L (0.01-0.04) ng/ml Critical Care Time Critical Care Time Critical Care Time: Yes (Complete heart block, transfer for pacemaker) Attestation: The patient required my highest level preparedness to intervene emergently and I personally spent this critical care time directly and personally managing the patient. This critical care time included: Obtaining a history; Examining the patient; Pulse oximetry; Ordering and reviewing of studies; Arranging urgent treatment with development of a management plan; Evaluation of patients response to treatment; Frequent reassessment discussions with other providers. This critical care time was performed to assess and manage the high probability of imminent life-threatening deterioration that could result in multiorgan failure. It was exclusive of separate billable procedures and treating other patients and teaching time. Total Critical Care Time in Minutes: 40 Discharge Plan Discharge Clinical Impression: Atrioventricular dissociation, complete, Idioventricular rhythm, Syncope Patient Disposition: [facility] Prescriptions: No Action metformin 1,000 mg tablet 1,000 mg PO BID metoprolol succinate 25 mg tablet extended release 24 hr 25 mg PO DAILY lisinopril 20 mg tablet 20 mg PO DAILY oxybutynin chloride 5 mg tablet extended release 24hr 5 mg PO DAILY atorvastatin 20 mg tablet PO citalopram 20 mg tablet 20 mg PO DAILY omeprazole 40 mg capsule,delayed release(DR/EC) 40 mg PO DAILY metformin 500 mg tablet 500 mg PO BID Stand Alone Forms: Smule Info Instructions
[2025-01-17 22:52] LABS: Chloride* 101 mmol/L (96-114); Potassium* 5.6 mmol/L (3.6-5.1); Sodium* 133 mmol/L (135-149)
[2025-01-17 22:54] LABS: Troponin, Point-of-Care* 0.00 ng/ml (0.01-0.04)
[2025-01-17 22:55] LABS: Anion Gap 10 mEq/L (7-15); Blood Urea Nitrogen* 37 mg/dL (7-30); Calcium* 10.0 mg/dL (8.4-10.6); Carbon Dioxide* 22 mmol/L (20-32); Creatinine* 1.5 mg/dL (0.5-1.5); Est. Creatinine Clearance* 51.05; Estimated Glomerular Filt Rate 49 ml/min; Glucose* 166 mg/dL (60-115)
[2025-01-18] VITALS: PULSE 30; RESP 25; O2SAT 94
[2025-01-18 00:02] VITALS: BP 158/52; RESP 28
[2025-01-18 00:12] VITALS: BP 151/64; RESP 28
[2025-01-18 00:15] VITALS: RESP 30
[2025-01-18 00:21] VITALS: BP 156/68; RESP 23
== END 2025-01-18 00:36 | disposition short-term general hospital (02) ==
LOC: ED 22:44
PROVIDERS: Emergency Provider Family Medicine; PCP Family Medicine
DX: I44.2 Atrioventricular block, complete (principal); I49.8 Other specified cardiac arrhythmias; R55 Syncope and collapse
CPT/HCPCS: 36415; 80048; 83735; 84484; 93005; 99285; 99291

== ENCOUNTER 2025-01-18 00:18 | Outpatient (CLI) | payer MEDICARE, BC, SELFPAY | END 2025-01-18 00:19 | disposition home or self-care (01) | PROVIDERS: PCP Family Medicine; Visit Provider Orthopaedic Surgery | DX: I45.89 Other specified conduction disorders (principal); I44.2 Atrioventricular block, complete; R55 Syncope and collapse | CPT/HCPCS: A0425; A0427 ==